=== PATIENT | male | born 1950 | race Caucasian/White ===

== ENCOUNTER 2017-07-28 08:16 | Emergency (ER) | payer OTHER ==
[2017-07-28 08:35] VITALS: BP 124/72; PULSE 69; TEMP 97.9; BMI 28.3
--- NOTE | 2017-07-28 09:04 | PDOC ---
History of Present Illness - General Chief Complaint: Sore Throat Stated Complaint: SORE THROAT Time Seen by Provider: 07/28/17 08:56 History Source: Patient Exam Limitations: No Limitations - History of Present Illness Initial Comments: 07/28/17 09:01 Was caring for granddaughter last week who suffered from URI with high fevers and strep throat. Onset of patient's symptoms approximately 3 days later and has been sick with a moist cough, productive phlegm of thick yellow-green and fevers Past History - Travel Traveled outside of the country in the last 30 days: No Close contact w/someone who was outside of country & ill: No - Past Medical History Allergies/Adverse Reactions: Allergies Allergy/AdvReac Type Severity Reaction Status Date / Time No Known Allergies Allergy Verified 07/28/17 08:37 Home Medications: Ambulatory Orders Lisinopril [Prinivil] 10 mg PO DAILY 12/06/15 Loratadine [Claritin -] 10 mg PO DAILY 03/05/16 Azithromycin [Zithromax -] 250 mg PO UTDICT #6 tab 07/28/17 COPD: No HTN: Yes Kidney Stones: Yes - Suicide/Smoking/Psychosocial Hx Smoking History: Never smoked Have you smoked in the past 12 months: No Information on smoking cessation initiated: No Hx Alcohol Use: No Drug/Substance Use Hx: No Substance Use Type: None Review of Systems - Review of Systems Able to Perform ROS?: Yes Is the patient limited Faroese proficient: Yes Constitutional: Yes: Symptoms Reported, See HPI, Chills, Fever, Malaise HEENTM: Yes: Symptoms Reported, See HPI, Nose Congestion, Difficulty Swallowing Respiratory: Yes: Symptoms reported, See HPI, Cough, Orthopnea Cardiac (ROS): No: Symptoms Reported : Yes: Symptoms Reported Musculoskeletal: No: Symptoms Reported Integumentary: No: Symptoms Reported Neurological: Yes: Symptoms reported, See HPI, Headache All Other Systems: Reviewed and Negative *Physical Exam - Vital Signs Last Vital Signs Temp Pulse Resp BP Pulse Ox 97.9 F 69 18 124/72 100 07/28/17 08:33 07/28/17 08:33 07/28/17 08:33 07/28/17 08:33 07/28/17 08:33 - Physical Exam General Appearance: Yes: Nourished, Appropriately Dressed HEENT: positive: JED, Normal ENT Inspection, TMs Normal (congested ), Tonsillar Erythema, Rhinorrhea, Sinus Tenderness. negative: Pharynx Normal Neck: positive: Supple, Lymphadenopathy (R), Lymphadenopathy (L). negative: Tender Respiratory/Chest: positive: Chest Tender, Lungs Clear (but coarse bilaterally ) , Normal Breath Sounds. negative: Respiratory Distress Cardiovascular: positive: Regular Rhythm Gastrointestinal/Abdominal: positive: Soft. 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, Fully Oriented, Alert, Normal Mood/ Affect, Normal Response, Motor Strength 12/07 Medical Decision Making - Medical Decision Making 07/28/17 09:11 Otitis, will treat with Z-Jonah and conservative measures *DC/Admit/Observation/Transfer Diagnosis at time of Disposition: URI, acute - Discharge Dispostion Disposition: HOME Condition at time of disposition: Stable Admit: No - Prescriptions Prescriptions: Azithromycin [Zithromax -] 250 mg PO UTDICT #6 tab - Referrals Referrals: Cinthya Braxton MD [Primary Care Provider] - - Patient Instructions Printed Discharge Instructions: DI for Viral Upper Respiratory Infection -- Adult Additional Instructions: Rest, drink lots of fluids: Teas, water, soups, Pedialyte Saltwater gargles Steamy showers/seem to face break up mucus Avoid contact with others until fevers and cough resolved Lots of handwashing and good hygiene Continue [id number] medications for symptomatic relief Tylenol or Motrin for fever and pain Azithromycin as directed Followup with private physician in one to 2 days as needed Return to emergency department for worsened symptoms, fevers, dehydration - Post Discharge Activity Forms/Work/School Notes: Back to Work
== END 2017-07-28 09:12 | disposition home or self-care (01) ==
LOC: JERFT 08:16
DX: J06.9 Acute upper respiratory infection, unspecified (principal); B97.89 Other viral agents as the cause of diseases classified elsewhere; I10 Essential (primary) hypertension
CPT/HCPCS: 99281-25